=== PATIENT | male | born 1960 | race Caucasian/White ===

== ENCOUNTER → 2021-08-05 10:45 | Outpatient (CLI) | payer BC, SELFPAY ==
--- NOTE | ~2021-08-05 | US_ITS ---
EXAMINATION: US renal BI EXAM DATE: 08/05/2021 11:19 INDICATION: Kidney stone. TECHNIQUE: Multiple grayscale and Doppler images of the kidneys were obtained (by a technologist who performed the scan) and subsequently reviewed. There is no prior study for comparison. FINDINGS: Right kidney: There is normal contour and mildly increased echogenicity. It measures 11.1 x 5.3 x 6. 1 centimeters. There is a right renal lesion consistent with cyst measuring up to 2.0 cm. There is no hydronephrosis. Left kidney: There is normal contour and mildly increased echogenicity. It measures 11.9 x 5.3 x 5.7 centimeters. There are no focal renal lesions identified. There is no hydronephrosis. Bladder unremarkable. Bilateral ureteral jets were visualized. IMPRESSION: 1. No obstructive nephropathy. 2. Mildly echogenic renal cortices, medical renal disease. Reviewed, dictated and finalized at location G.
== END ==
DX: N20.0 Calculus of kidney (principal)
CPT/HCPCS: 76775